=== PATIENT | female | born 1950 | race Caucasian/White ===

== ENCOUNTER → 2023-07-27 12:25 | Outpatient (CLI) | payer MEDICARE, SELFPAY ==
--- NOTE | 2023-07-27 | DI.CT.S_ITS ---
PROCEDURE: CT CHEST W CON INDICATIONS: dyspnea, cough, failed empiric treatment TECHNIQUE: After the administration of intravenous contrast, 5 mm thick sections acquired from the pulmonary apices to the posterior costophrenic angles. 1 mm axial lung, 5 mm thick coronal and sagittal reformats and 7 mm axial MIP were acquired. For radiation dose reduction, the following was used: automated exposure control, adjustment of mA and/or kV according to patient size. COMPARISON: None. FINDINGS: Image quality: Diagnostic. Lower Neck: No enlarged lymph nodes. Thyroid: No thyroid nodules which require sonographic follow up, per consensus guidelines. Axillae: No enlarged lymph nodes. Chest Wall: Unremarkable. Bones: Unremarkable. Lungs and Pleura: No pneumothorax or pleural effusions. 7 millimeter partially calcified nodule with low attenuation in the left lower lobe (series 3, image 243). 2 millimeters solid, endobronchial nodule in a right upper lobe subsegmental bronchus (series 3, image 100) Heart: Heart size is enlarged. No pericardial effusion. Marked coronary calcifications for age. Thoracic Vessels: The aorta and pulmonary arteries demonstrate normal size. Mediastinum and [place]: No enlarged lymph nodes. Esophagus: No wall thickening. Small hiatal hernia. Upper Abdomen: Visualized upper abdomen solid organs and bowel loops appear normal. IMPRESSION: No findings to explain the patient's dyspnea and cough. 7 millimeter partially calcified nodule with low attenuation in the left lower lobe. Appearance favors a hamartoma. Recommend follow-up in 6 months. Marked coronary artery calcifications for age. Consider cardiology referral. Dictated by: Yogi Odonnell M.D. on 07/27/2023 at 14:41 Approved by: Yogi Odonnell M.D. on 07/27/2023 at 14:45
--- NOTE | 2023-07-27 | DI.CT.S_ITS ---
PROCEDURE: CT SOFT TISSUE NECK W CON INDICATIONS: dyspnea, cough, failed empiric treatment vocal cord paralysis TECHNIQUE: After the administration of intravenous contrast, 3.0 mm axial sections acquired from the sella to the aortic arch. Additional oblique axial 3.0 mm sections acquired through the pharynx. 3 mm thick coronal and sagittal reformats were generated. For radiation dose reduction, the following was used: automated exposure control. COMPARISON: None. FINDINGS: Image quality: Excellent. Lymph nodes: No enlarged lymph nodes seen throughout the neck. Vessels: Visualized vasculature appears patent. Neck spaces: The oropharynx, nasopharynx, and pharynx demonstrate no mucosal lesions. True and false vocal cords appear grossly within normal limits. The pyriform sinuses, epiglottis, vallecula, and tongue base all appear normal. Extramucosal spaces appear unremarkable. Glands: The parotid and submandibular glands appear normal. No thyroid nodules across sonographic follow-up per consensus guidelines. Miscellaneous: Visualized brain and orbits appear normal. Lung apices appear clear, please refer to same day CT of the chest. Superficial soft tissues appear normal. Bones: No suspicious bony lesions. Multilevel degenerative changes of the spine. Visualized sinuses and mastoids appear unremarkable. IMPRESSION: No cause for patient's symptoms is identified. No masses or lymphadenopathy is seen within the neck. Dictated by: Dominick Goss M.D. on 07/27/2023 at 15:46 Approved by: Dominick Goss M.D. on 07/27/2023 at 16:05
[2023-07-27 12:59] LABS: Estimated Glomerular Filt Rate > 60 mL/min (>60)
== END ==
PROVIDERS: Radiology Diagnostic Radiology; PCP Family Medicine; Referring Provider Otolaryngology; Visit Provider Otolaryngology
DX: R22.1 Localized swelling, mass and lump, neck (principal); J38.00 Paralysis of vocal cords and larynx, unspecified; R06.00 Dyspnea, unspecified; R91.1 Solitary pulmonary nodule; I51.7 Cardiomegaly; I25.10 Atherosclerotic heart disease of native coronary artery without angina pectoris
CPT/HCPCS: 36415; 70491; 71260; 82565; Q9967

== ENCOUNTER → 2023-08-07 | Outpatient (CLI) | payer MEDICARE, SELFPAY ==
--- NOTE | 2023-08-07 | DI.US.S_ITS ---
PROCEDURE: US THYROID INDICATIONS: Paralysis of vocal cords and larynx, unspecified TECHNIQUE: Real-time scanning was performed of the thyroid gland, with image documentation. COMPARISON: [facility], CT, CT CHEST W CON, 07/27/2023, 13:25. [facility], CT, CT SOFT TISSUE NECK W CON, 07/27/2023, 13:25. FINDINGS: Thyroid: Right lobe measures 3.3 x 1.4 x 1.4 cm. Left lobe measures 3.7 x 1.0 x 0.8 cm. Isthmus is 0.3 cm thick. Echotexture is homogeneous. Nodule number: 1 Location: Right mid inferior Size: 1.5 cm. Composition: Solid Echogenicity: Hypoechoic Shape: wider than tall. Margins: Ill-defined Echogenic foci: Absent Total points: 4 ACR TI-RADS category: Moderately suspicious Nodule number: 2 Location: Left superior Size: 0.9 cm. Composition: Colloid cyst IMPRESSION: 1. Right mid inferior 1.5 cm nodule moderately suspicious nodule (TIRDS-4). Recommend FNA based on size. ACR TI-RADS definitions and recommendations: TI-RADS 1 (benign): 0 points. FNA not needed. TI-RADS 2 (not suspicious): 2 points. FNA not needed. TI-RADS 3 (mildly suspicious): 3 points. * FNA if 2.5 cm or larger, follow up if 1.5 cm or larger (at 1, 3, and 5 years). TI-RADS 4 (moderately suspicious): 4-6 points. * FNA if 1.5 cm or larger, follow up if 1 cm or larger (at 1, 2, 3, and 5 years). TI-RADS 5 (highly suspicious): 7 points or more. * FNA if 1 cm or larger, follow up if 0.5 cm or larger (every year for 5 years). Dictated by: Jhon CHASE Interpreted: Dannielle Thorne MD on 08/07/2023 at 16:40 Transcribed by: MELINA on 08/07/2023 at 16:45 Approved by: Dannielle Thorne M.D. on 08/31/2023 at 16:09
== END ==
PROVIDERS: Family Provider Student in an Organized Health Care Education/Training Program; PCP Student in an Organized Health Care Education/Training Program; Referring Provider Otolaryngology; Visit Provider Otolaryngology
DX: J38.00 Paralysis of vocal cords and larynx, unspecified (principal); E04.2 Nontoxic multinodular goiter
CPT/HCPCS: 76536